=== PATIENT | female | born 1990 | race African-American/Black ===

== ENCOUNTER 2018-03-24 13:01 | Emergency (ER) | payer SELFPAY ==
--- NOTE | 2018-03-24 13:36 | ER Document Report ---
ED Medical Screen (RME) - General Chief Complaint: Neck Injury Stated Complaint: FALL/NECK PAIN Time Seen by Provider: 03/24/18 13:22 TRAVEL OUTSIDE OF THE [place] IN LAST 30 DAYS: No - HPI Notes: 03/24/18 13:34 Patient fell through a deck approximately 2-3 days ago went to an urgent care had a C-spine film performed showing concern for possible retropharyngeal hematoma sent to the ER for further evaluation denies any difficulty swallowing breathing. Resting healthy upon my evaluation. - Related Data Allergies/Adverse Reactions: tramadol Allergy (Intermediate, Verified 03/24/18 13:30) Hives acetaminophen [From Vicodin] Allergy (Verified 03/24/18 13:29) hydrocodone bitartrate [From Vicodin] Allergy (Verified 03/24/18 13:29) loratadine [From Claritin] Allergy (Verified 03/24/18 13:29) pet dander Allergy (Uncoded 03/24/18 13:29) pollen Allergy (Uncoded 03/24/18 13:29) Past Medical History - Social History Chew tobacco use (# tins/day): No Frequency of alcohol use: None Drug Abuse: None Renal/ Medical History: Denies: Hx Peritoneal Dialysis Past Surgical History: Reports: Hx Tonsillectomy - +adenoids - Immunizations Hx Diphtheria, Pertussis, Tetanus Vaccination: No Review of Systems - Review of Systems Constitutional: Other - Neck pain Physical Exam - Vital signs Vitals: Temp Pulse Resp BP Pulse Ox 98.6 F 73 20 147/99 H 99 03/24/18 13:11 03/24/18 13:11 03/24/18 13:11 03/24/18 13:11 03/24/18 13:11 - HEENT Notes: Posterior pharynx shows no signs of swelling. Patient's no drooling tolerating oral secretions no midline tenderness Course - Vital Signs Vital signs: Temp Pulse Resp BP Pulse Ox 98.6 F 73 20 147/99 H 99 03/24/18 13:11 03/24/18 13:11 03/24/18 13:11 03/24/18 13:11 03/24/18 13:11
[2018-03-24 14:07] LABS: ABSOLUTE BASOPHILS # (AUTO) 0.1 10^3/uL (0.0-0.2); ABSOLUTE EOSINOPHILS # (AUTO) 0.3 10^3/uL (0.0-0.6); ABSOLUTE LYMPHOCYTES (AUTO) 4.6 10^3/uL (0.5-4.7); ABSOLUTE MONOCYTES (AUTO) 1.3 10^3/uL (0.1-1.4); ABSOLUTE NEUT (AUTO) 7.9 10^3/uL (1.7-8.2); BASOPHILS % (AUTO) 0.7 % (0-2); EOSINOPHILS % (AUTO) 2.1 % (0-6); HEMOGLOBIN 12.3 g/dL (12.0-15.5); LYMPHOCYTES % (AUTO) 32.3 % (13-45); MEAN CORPUSCULAR HGB CONC 34.2 g/dL (32.0-36.0); MEAN CORPUSCULAR VOLUME 85 fl (80-97); MONOCYTES % (AUTO) 9.4 % (3-13); PLATELET COUNT 296 10^3/uL (150-450); RED BLOOD COUNT 4.24 10^6/uL (3.72-5.28); SEGMENTED NEUTROPHILS % (AUTO) 55.5 % (42-78); TOTAL CELLS COUNTED % (AUTO) 100 %; WHITE BLOOD COUNT 14.2 10^3/uL (4.0-10.5)
[2018-03-24 14:32] LABS: ANION GAP 11 (5-19); BLOOD UREA NITROGEN 8 mg/dL (7-20); CALCIUM 9.4 mg/dL (8.4-10.2); CARBON DIOXIDE 28 mmol/L (22-30); CHLORIDE 102 mmol/L (98-107); GLUCOSE 87 mg/dL (75-110); POTASSIUM 4.4 mmol/L (3.6-5.0); SODIUM 141.1 mmol/L (137-145)
--- NOTE | 2018-03-24 15:00 | RADIOLOGY REPORT (SQ) ---
EXAM DESCRIPTION: CT SOFT TISSUE NECK WITH COMPLETED DATE/TIME: 03/24/2018 2:30 pm REASON FOR STUDY: fall out patient cspine concern for retrophar hemo COMPARISON: None. TECHNIQUE: Post IV contrasted scanning from skull base through lung apices with review of bone, soft tissue and lung windows. Reconstructed coronal and sagittal MPR images reviewed. All images stored on PACS. All CT scanners at this facility use dose modulation, iterative reconstruction, and/or weight based d osing when appropriate to reduce radiation dose to as low as reasonably achievable (ALARA). [facility]: Dose Right [facility]: CareDose [facility]: Dose Right [facility]: Teradose 4D [facility]: [employer] CONTRAST TYPE AND DOSE: contrast/concentration: Isovue 350.00 mg/ml; Total Contrast Delivered: 75.0 ml; Total Saline Delivered: 55.0 ml RENAL FUNCTION: None required. The patient is less than 50 years old. RADIATION DOSE: CT Rad equipment meets quality standard of care and radiation dose reduction techniq ues were employed. CTDIvol: 15.2 mGy. DLP: 439 mGy-cm. . LIMITATIONS: None. FINDINGS: SKULL BASE: Intact. MAJOR SALIVARY GLANDS: No solid or cystic masses. No inflammatory changes. LYMPHADENOPATHY: Scattered prominent lymph nodes are present bilaterally, the largest measuring on th e order of 19 x 14 mm anterior to the right carotid bulb and 24 x 11 mm lateral to the left internal carotid artery. MUCOSAL MASSES OR ASYMMETRY: A 3.9 x 1.5 x 4.6 cm collection demonstrating heterogeneous intermediate attenuation is seen within the retropharyngeal space at the level of the C2 through C3 vertebral bod ies. LARYNX/CORDS: No abnormal findings. VASCULAR STRUCTURES: The major vessels are patent. LUNG APICES: Patchy opacity within the left upper lobe is of uncertain etiology or significance. BONES: Intact. THYROID: Normal size. No masses. PARANASAL SINUSES: Clear. OTHER: No other significant finding. IMPRESSION: 3.9 x 1.5 x 4.6 cm retropharyngeal collection demonstrating intermediate Hounsfield unit s, possibly on the basis of retropharyngeal hemorrhage; mass is not excluded. Bilateral cervical lym phadenopathy. Partially visualized patchy opacity within the left upper lobe. TECHNICAL DOCUMENTATION: JOB ID: [id number] Quality ID # 436: Final reports with documentation of one or more dose reduction techniques (e.g., Au tomated exposure control, adjustment of the mA and/or kV according to patient size, use of iterative reconstruction technique) 2010 [employer]- All Rights Reserved Reading location - IP/workstation name: [email or web address]
[2018-03-24] MEDS ORDERED: FENTANYL CITRATE INJ/PF 100 MCG/2 ML AMPUL IV ONE (15:36)
--- NOTE | 2018-03-24 15:38 | ER Document Report ---
ED General - General Chief Complaint: Neck Injury Stated Complaint: FALL/NECK PAIN Time Seen by Provider: 03/24/18 13:22 Mode of Arrival: Ambulatory Information source: Patient, Parent TRAVEL OUTSIDE OF THE [place] IN LAST 30 DAYS: No - HPI Patient complains to provider of: neck pain Onset: Other - This 28-year-old female presents for evaluation of possible throat pharyngeal hematoma. She is an otherwise healthy 28-year-old who had a fall a few days prior to evaluation today, because of the pain she was having she presented to an outside provider at which time she underwent x-rays of her neck which demonstrated a concern for swelling in the neck. She was told to come to the emergency room and seek evaluation by a neurosurgeon, she denies any fevers or chills, does note some fullness in the front of the neck, does endorse some pain or swelling in the back of the neck. She is never had anything like this in the past, she has taken ibuprofen with only minimal improvement in her symptoms over the last couple of days. - Related Data Allergies/Adverse Reactions: tramadol Allergy (Intermediate, Verified 03/24/18 13:30) Hives acetaminophen [From Vicodin] Allergy (Verified 03/24/18 13:29) hydrocodone bitartrate [From Vicodin] Allergy (Verified 03/24/18 13:29) loratadine [From Claritin] Allergy (Verified 03/24/18 13:29) pet dander Allergy (Uncoded 03/24/18 13:29) pollen Allergy (Uncoded 03/24/18 13:29) Past Medical History - General Information source: Patient, Parent - Social History Smoking Status: Never Smoker Chew tobacco use (# tins/day): No Frequency of alcohol use: None Drug Abuse: None Family History: Reviewed & Not Pertinent Patient has suicidal ideation: No Patient has homicidal ideation: No Renal/ Medical History: Denies: Hx Peritoneal Dialysis Past Surgical History: Reports: Hx Tonsillectomy - +adenoids - Immunizations Hx Diphtheria, Pertussis, Tetanus Vaccination: No Review of Systems - Review of Systems -: Yes All other systems reviewed and negative Physical Exam - Vital signs Vitals: Temp Pulse Resp BP Pulse Ox 98.6 F 73 20 147/99 H 99 03/24/18 13:11 03/24/18 13:11 03/24/18 13:11 03/24/18 13:11 03/24/18 13:11 - General General appearance: Alert, Anxious In distress: None - HEENT Head: Normocephalic Eyes: Normal Conjunctiva: Normal Cornea: Normal Eyelashes: Normal Pupils: PERRL Pharynx: Other - The posterior pharynx is nearly obscured, currently grade 4 malampati Neck: Other - Tenderness in the anterior neck along the trachea as well as the sternocleidomastoid Course - Re-evaluation Re-evalutation: This 28-year-old female presents 5 days after having had a fall through a deck, she subsequently had back pain as well as a sore throat and neck pain. She was seen by a primary physician today in follow-up because her back events or persistently painful at which time she had x-rays taken, the x-ray showed swelling in the neck which was concerning for some bleeding as such she was referred to the emergency room to proceed for further evaluation. Through triage she had a CT scan of the neck done with contrast, CT scan of the neck demonstrated a likely as a retropharyngeal hematoma 4 x 4 x 2 cm. Because of the concern for impending airway impingement and obstruction emergently contacted higher level of care. The patient remained comfortable on room air, she was not stridulous. Believe this patient will require surgical care. 03/24/18 15:42 Contacted [facility] 335 PM Spoke to on-call trauma surgeon Dr. Cardenas, Dr. Cardenas defers to ENT at this time, will speak to ENT at [facility] Spoke specifically to Dr. lockhart of ENT at [facility], he states that this patient likely has a life-threatening injury with vascular involvement in the retropharyngeal space. He recommended immediate transport to [facility] for vascular surgery, neurosurgery and trauma surgery consultation and evaluation. Reassessed the patient who continues to be comfortable on room air. Updated the mother and the patient as to the current plan, patient has been accepted at [facility], because of weather flight was deferred after 1 hours of time. Patient was administered 1 L normal saline, placed on satellite project site monitor, subsequently was transported by advanced life support crew [facility] for definitive management. At the time of transport she was hemodynamically stable and comfortable on room air. 03/24/18 18:10 - Vital Signs Vital signs: Temp Pulse Resp BP Pulse Ox 98.6 F 73 20 147/99 H 99 03/24/18 13:11 03/24/18 13:11 03/24/18 13:11 03/24/18 13:11 03/24/18 13:11 - Laboratory Result Diagrams: 03/24/18 13:45 03/24/18 13:45 Laboratory results interpreted by me: 03/24/18 13:45 WBC 14.2 H Discharge - Discharge Clinical Impression: Oropharyngeal bleeding, Throat swelling, Swelling of throat Condition: Stable Disposition: [facility]
[2018-03-24] MEDS ORDERED: NORMAL SALINE 1000 ML 1,000 ML IV ONE ×2 (15:54→18:34)
[2018-03-24 19:24] VITALS: BP 139/77
== END 2018-03-24 20:00 | disposition short-term general hospital (02) ==
LOC: ER 13:01
DX: R04.1 Hemorrhage from throat (principal); R22.1 Localized swelling, mass and lump, neck; Z88.6 Allergy status to analgesic agent
CPT/HCPCS: 99285; 96361; 96374; 36415; 85025; 80048; 70491; J3010; J7030

== ENCOUNTER 2018-12-17 17:22 | Emergency (ER) | payer SELFPAY ==
[2018-12-17 20:20] VITALS: BP 148/97
--- NOTE | 2018-12-17 20:20 | ER Document Report ---
ED Neck/Back Problem - General Chief Complaint: Neck Swelling Stated Complaint: NECK AND BACK PAIN, SWELLING Time Seen by Provider: 12/17/18 20:09 Mode of Arrival: Ambulatory Information source: Patient Notes: 28-year-old female presents to ED for complaint of neck swelling for the last 2 days. She states it is irritated when she tries to talk or swallow. She states she has had this pain off and on for a year and has been seen by [facility] and Dr. Aguiar multiple times. She states that the swelling has in the past made her have difficulty breathing and today her pain is excruciating. She states she is getting placed on pain management. There is no swelling to the throat at this time she has had her tonsils removed. Patient is alert oriented respirations regular and unlabored speaking in full sentences in no acute distress at this time. We will get a CBC mono test soft tissue neck and a urine. She does have some type of white powder in her nose she states is from an allergy medicine. TRAVEL OUTSIDE OF THE [place] IN LAST 30 DAYS: No - HPI Onset: Other - Off and on for the past year this time for the last 2 days Onset: Chronic Timing: Waxing and waning Quality of pain: Sharp, Throbbing Severity: Severe Pain Level: 5 Context: Turning Recent injury: No Associated symptoms: Other - Swelling to the soft tissue neck and sore throat Exacerbated by: Movement of neck Relieved by: Nothing Similar symptoms previously: Yes Recently seen / treated by doctor: No - Related Data Allergies/Adverse Reactions: tramadol Allergy (Intermediate, Verified 12/17/18 17:24) Hives hydrocodone bitartrate [From Vicodin] Allergy (Verified 12/17/18 17:24) loratadine [From Claritin] Allergy (Verified 12/17/18 17:24) pet dander Allergy (Uncoded 12/17/18 17:24) pollen Allergy (Uncoded 12/17/18 17:24) Past Medical History - General Information source: Patient - Social History Smoking Status: Never Smoker Frequency of alcohol use: None Drug Abuse: None Lives with: Family Family History: Reviewed & Not Pertinent - Past Medical History Cardiac Medical History: Reports: None Renal/ Medical History: Denies: Hx Peritoneal Dialysis Past Surgical History: Reports: Hx Tonsillectomy - +adenoids - Immunizations Hx Diphtheria, Pertussis, Tetanus Vaccination: No Review of Systems - Review of Systems Constitutional: No symptoms reported EENT: Throat pain, Other - Neck swelling off and on for the last year this time is been for 2 days Cardiovascular: No symptoms reported Respiratory: No symptoms reported Gastrointestinal: No symptoms reported Genitourinary: No symptoms reported Female Genitourinary: No symptoms reported Musculoskeletal: No symptoms reported Skin: No symptoms reported Hematologic/Lymphatic: No symptoms reported Neurological/Psychological: No symptoms reported -: Yes All other systems reviewed and negative Physical Exam - Vital signs Vitals: Temp Pulse Resp BP Pulse Ox 98.2 F 91 16 148/97 H 99 12/17/18 17:44 12/17/18 17:44 12/17/18 17:44 12/17/18 17:44 12/17/18 17:44 Interpretation: Normal - General General appearance: Appears well, Alert - HEENT Head: Normocephalic, Atraumatic Eyes: Normal Pupils: PERRL Ears: Normal External canal: Normal Tympanic membrane: Normal Sinus: Normal Nasal: Swelling, Other - White powdery substance in her nose Mouth/Lips: Normal Mucous membranes: Normal Pharynx: Post nasal drainage Neck: Supple, Other - Patient states she has swelling to the neck the neck d is soft and large equal bilateral - Respiratory Respiratory status: No respiratory distress Chest status: Nontender Breath sounds: Normal Chest palpation: Normal - Cardiovascular Rhythm: Regular Heart sounds: Normal auscultation Murmur: No - Abdominal Inspection: Normal Distension: No distension Bowel sounds: Normal Tenderness: Nontender Organomegaly: No organomegaly - Back Back: Normal, Nontender - Extremities General upper extremity: Normal inspection, Nontender, Normal color, Normal ROM, Normal temperature General lower extremity: Normal inspection, Nontender, Normal color, Normal ROM, Normal temperature, Normal weight bearing. No: Deborah's sign - Neurological Neuro grossly intact: Yes Cognition: Normal Orientation: AAOx4 Mattie Coma Scale Eye Opening: Spontaneous [place] Coma Scale Verbal: Oriented Mattie Coma Scale Motor: Obeys Commands Mattie Coma Scale Total: 15 Speech: Normal Motor strength normal: LUE, RUE, LLE, RLE Sensory: Normal - Psychological Associated symptoms: Normal affect, Normal mood - Skin Skin Temperature: Warm Skin Moisture: Dry Skin Color: Normal Course - Re-evaluation Re-evalutation: 12/17/18 21:31 Discussed with patient the fact that we would need to do blood work strep test urine test and x-ray to find out the cause of her "swelling to her neck". The neck is not firm to palpation the neck is equal bilaterally. Patient has no compromise to her airway that I can see. There are no definite swollen lymph nodes noted. She states the worst pain is in the back of her neck and it is been going on off and on for a year. Patient stated she was going to go to the [facility] to plug in her phone. X-ray tech was here to take her to x-ray for the soft tissue neck. And the nurse was prepared to draw her blood and she stated she needed to go to the [facility] to plug in her phone first. Patient did not come back from the [facility]. We have gone and looked in the [facility] we have called her name multiple times. She was not in x-ray. Patient had already said that she did not want blood work or any labs and the x-ray was not going to show anything that she needed an MRI. I had discussed with her that there we do not need to do MRIs of the neck for chronic problem that has no acute problems at this time. Patient did elope. - Vital Signs Vital signs: Temp Pulse Resp BP Pulse Ox 98.2 F 91 16 148/97 H 99 12/17/18 17:44 12/17/18 17:44 12/17/18 17:44 12/17/18 17:44 12/17/18 17:44 Discharge - Discharge Clinical Impression: Normal exam Disposition: ELOPED
== END 2018-12-17 21:49 | disposition left against medical advice (07) ==
LOC: ER 17:22
DX: Z71.1 Person with feared health complaint in whom no diagnosis is made (principal); Z88.6 Allergy status to analgesic agent
CPT/HCPCS: 99281; L0120

== ENCOUNTER 2020-01-26 23:39 | Emergency (ER) | payer SELFPAY ==
[2020-01-27] MEDS ORDERED: MORPHINE SULFATE 10 MG/ML INJ IV STA (02:46)
[2020-01-27] MEDS ORDERED: NORMAL SALINE 1000 ML 1,000 ML IV ONE (02:47)
[2020-01-27] MEDS ORDERED: METOCLOPRAMIDE HCL INJ/PF 10 MG/2 ML SDV IV ONE (02:47)
[2020-01-27] MEDS ORDERED: MORPHINE SULFATE 10 MG/ML INJ IV ONE (02:48)
[2020-01-27] MEDS ORDERED: HYDRALAZINE HCL INJ/PF 20 MG/1 ML SDV IV ONE (02:52)
--- NOTE | 2020-01-27 03:31 | RADIOLOGY REPORT (SQ) ---
EXAM DESCRIPTION: CT HEAD WITHOUT IV CONTRAST COMPLETED DATE/TME: 01/27/2020 02:50 CLINICAL HISTORY: 29 years, Female, headache, high blood pressure COMPARISON: None. TECHNIQUE: 189 Images stored on PACS. All CT scanners at this facility use dose modulation, iterative reconstruction, and/or weight based dosing when appropriate to reduce radiation dose to as low as reasonably achievable (ALARA). [facility]: Dose Right [facility]: CareDose [facility]: Dose Right [facility]: Teradose 4D [facility]: [employer] LIMITATIONS: None. FINDINGS: The globes are intact. Paranasal sinuses and mastoid air cells are well aerated. No displaced or depressed skull fracture. No intra or extra-axial hemorrhage. CT is limited for evaluation of acute infarct. No CT evidence for large or territorial acute infarct. No mass. No midline shift IMPRESSION: Negative exam TECHNICAL DOCUMENTATION: Quality ID # 436: Final reports with documentation of one or more dose reduction techniques (e.g., Automated exposure control, adjustment of the mA and/or kV according to patient size, use of iterative reconstruction technique) copyright 2011 [employer]- All Rights Reserved
[2020-01-27] MEDS ORDERED: LABETALOL HCL INJ 20 MG/4 ML DISP.SYRIN IV ONE ×2 (03:40→04:31)
[2020-01-27 03:42] LABS: ABSOLUTE BASOPHILS # (AUTO) 0.1 10^3/uL (0.0-0.2); ABSOLUTE LYMPHOCYTES (AUTO) 3.3 10^3/uL (0.5-4.7); ABSOLUTE MONOCYTES (AUTO) 0.6 10^3/uL (0.1-1.4); ABSOLUTE NEUT (AUTO) 10.2 10^3/uL (1.7-8.2); BASOPHILS % (AUTO) 0.5 % (0-2); EOSINOPHILS % (AUTO) 0.3 % (0-6); HEMATOCRIT 41.4 % (36.0-47.0); HEMOGLOBIN 13.8 g/dL (12.0-15.5); LYMPHOCYTES % (AUTO) 23.2 % (13-45); MEAN CORPUSCULAR HEMOGLOBIN 28.3 pg (27.0-33.4); MEAN CORPUSCULAR HGB CONC 33.4 g/dL (32.0-36.0); MEAN CORPUSCULAR VOLUME 85 fl (80-97); MONOCYTES % (AUTO) 4.5 % (3-13); PLATELET COUNT 374 10^3/uL (150-450); RED BLOOD COUNT 4.89 10^6/uL (3.72-5.28); RED CELL DISTRIBUTION WIDTH 12.6 % (11.5-14.0); SEGMENTED NEUTROPHILS % (AUTO) 71.5 % (42-78); TOTAL CELLS COUNTED % (AUTO) 100 %; WHITE BLOOD COUNT 14.2 10^3/uL (4.0-10.5)
--- NOTE | 2020-01-27 03:53 | ER Document Report ---
Entered by ROBERTO MEDINA SCRIBE 01/27/20 0240 Acting as scribe for:NEVAEH COMER IV, MD ED Headache - General Chief Complaint: Headache, Worst Ever Stated Complaint: HEADACHE,CONGESTION Time Seen by Provider: 01/27/20 02:29 Primary Care Provider: SANDEEP WAGNER PA-C [Primary Care Provider] - Follow up as needed Mode of Arrival: Medic Information source: Patient Notes: This 29 year old female patient with a history of migraines brought in by EMS presents to the ED today with complaints of a right temporal headache that started x4 days ago. Denies head trauma, nausea/vomiting, blurred vision, or dizziness. Denies use of tobacco, ETOH, or recreational drugs. TRAVEL OUTSIDE OF THE [place] IN LAST 30 DAYS: No - Related Data Allergies/Adverse Reactions: tramadol Allergy (Intermediate, Verified 12/17/18 17:24) Hives hydrocodone bitartrate [From Vicodin] Allergy (Verified 12/17/18 17:24) loratadine [From Claritin] Allergy (Verified 12/17/18 17:24) pet dander Allergy (Uncoded 12/17/18 17:24) pollen Allergy (Uncoded 12/17/18 17:24) Past Medical History - General Information source: Patient - Social History Smoking Status: Never Smoker Cigarette use (# per day): No Chew tobacco use (# tins/day): No Smoking Education Provided: No Frequency of alcohol use: None Drug Abuse: None Family History: Reviewed & Not Pertinent Patient has suicidal ideation: No Patient has homicidal ideation: No Neurological Medical History: Reports: Hx Migraine Past Surgical History: Reports: Hx Adenoidectomy, Hx Tonsillectomy - Immunizations Hx Diphtheria, Pertussis, Tetanus Vaccination: No Review of Systems - Review of Systems Constitutional: No symptoms reported EENT: See HPI. denies: Blurred vision Cardiovascular: See HPI. denies: Dizziness Respiratory: No symptoms reported Gastrointestinal: See HPI. denies: Nausea, Vomiting Genitourinary: No symptoms reported Female Genitourinary: No symptoms reported Musculoskeletal: No symptoms reported Skin: No symptoms reported Hematologic/Lymphatic: No symptoms reported Neurological/Psychological: See HPI, Headaches -: Yes All other systems reviewed and negative Physical Exam - Vital signs Vitals: Temp Pulse Resp BP Pulse Ox 98.7 F 90 16 179/115 H 95 01/27/20 01:43 01/27/20 01:43 01/27/20 01:43 01/27/20 01:43 01/27/20 01:43 Interpretation: Hypertensive - General General appearance: Alert In distress: None - HEENT Head: Normocephalic, Atraumatic Eyes: Normal Pupils: PERRL - Respiratory Respiratory status: No respiratory distress Chest status: Nontender Breath sounds: Normal Chest palpation: Normal - Cardiovascular Rhythm: Regular Heart sounds: Normal auscultation Murmur: No Friction rub: No Gallop: None auscultated - Abdominal Inspection: Normal Distension: No distension Bowel sounds: Normal Tenderness: Nontender - Abdomen soft Organomegaly: No organomegaly - Back Back: Normal, Nontender - Extremities General upper extremity: Normal inspection General lower extremity: Normal inspection - Neurological Neuro grossly intact: Yes Orientation: AAOx4, Disoriented to events Mattie Coma Scale Eye Opening: Spontaneous Mattie Coma Scale Verbal: Oriented [place] Coma Scale Motor: Obeys Commands Mattie Coma Scale Total: 15 - Psychological Associated symptoms: Normal affect, Normal mood - Skin Skin Temperature: Warm Skin Moisture: Dry Skin Color: Normal Course - Re-evaluation Re-evalutation: 01/27/20 05:52 Patient states she is feeling better. Results of ED MSE discussed with patient. All questions were answered prior to discharge. Emergency signs and symptoms, reasons to return to the emergency department discussed with patient. - Vital Signs Vital signs: Temp Pulse Resp BP Pulse Ox 98.7 F 90 16 142/71 H 99 01/27/20 01:43 01/27/20 01:43 01/27/20 05:01 01/27/20 05:00 01/27/20 05:01 - Laboratory Result Diagrams: 01/27/20 03:08 01/27/20 03:08 Laboratory results interpreted by me: 01/27/20 01/27/20 03:08 03:08 WBC 14.2 H Absolute Neuts (auto) 10.2 H BUN 5 L Glucose 124 H - Diagnostic Test Radiology reviewed: Reports reviewed Discharge - Discharge Clinical Impression: Headache Qualifiers: Headache type: unspecified Headache chronicity pattern: acute headache Intractability: not intractable Qualified Code(s): R51 - Headache High blood pressure Qualifiers: Hypertension type: unspecified Qualified Code(s): I10 - Essential (primary) hypertension Condition: Stable Disposition: HOME, SELF-CARE Instructions: Headache ([facility]) Additional Instructions: Return to the Emergency Department without delay if any worse. HOME CARE INSTRUCTIONS & INFORMATION: Thank you for choosing us for your medical needs. We hope you're satisfied with the care you received. After you leave, you must properly care for your problem and, at the same time, observe its progress. Any condition can change. Some illnesses can change rapidly over hours or days. If your condition worsens, return to the Emergency Department or see your physician promptly. ABOUT YOUR X-RAYS AND EKG'S: If you had an EKG or X-rays taken, they have been read by the Emergency Physician. The X-rays and EKG's will also be read by a Radiologist or Geomagnetist within 24 hours. If discrepancies are noted, you will be notified by telephone. Please be certain the ED has a correct telephone number & address where you can be reached. Also, realize that some fractures or abnormalities do not show up on initial X-rays. If your symptoms continue, see your physician. ABOUT YOUR LABORATORY TEST: If you had laboratory tests, the results have been reviewed by the Emergency Physician. Some test results (for example cultures) may not be available for several days. You will be contacted if any test result shows you need additional treatment. Please be certain the ED has a correct telephone number and address where you can be reached. ABOUT YOUR MEDICATIONS: You will receive instructions on how to take your medicine on the prescription label you receive. Additional information may be provided by the Pharmacy. If you have questions afterwards, call the ED for clarification or further instructions. Some prescribed medications may cause drowsiness. Do not perform tasks such as driving a car or operating machinery without consulting your Pharmacist. If you feel you need a refill of pain medication, your condition will need re-evaluation. Please do not call for a refill of any medication. ABOUT YOUR SIGNATURE: Signature of this document acknowledges to followin. Understanding that you received emergency treatment and that you may be released before al medical problems are known or treated. Please be certain the ED has a correct phone number & address where you can be reached. 2. Acknowledgement that you will arrange for follow-up care as recommended. 3. Authorization for the Emergency Physician to provide information to your follow-up Physician in order to maximize your care. AT ANY TIME, IF YOUR SYMPTOMS CHANGE SIGNIFICANTLY OR WORSEN OR YOU DEVELOP NEW SYMPTOMS, RETURN TO THE EMERGENCY DEPARTMENT IMMEDIATELY FOR RE-EVALUATION. OUR GOAL IS TO PROVIDE EXCELLENT MEDICAL CARE! WE HOPE THAT WE HAVE MET YOUR EXPECTATIONS DURING YOUR EMERGENCY DEPARTMENT VISIT AND THAT YOU FEEL YOU HAVE RECEIVED EXCELLENT CARE! Headache The physician does not feel that the headache you are experiencing has a serious underlying cause. Most headaches are due to emotional stress, with resultant muscle tension (tension headache). Occasionally, headaches are secondary to changes in the blood vessels of the scalp (vascular headache and migraine headache). Sometimes, a headache is the first symptom of another developing illness, such as a viral infection. You have no evidence of stroke, bleeding, meningitis, or other serious cause of your headache. The treatment of headaches varies with the severity and cause of the pain. Not all headaches need pain shots. In fact, there is evidence that using narcotics for headaches may make them worse in the long run. The physician will determine the therapy that's in your best interest. If you develop a fever, if the headache is different from any you've previously experienced, or if the headache progressively worsens, then call your physician at once or go to the emergency room. High Blood Pressure When your blood pressure was taken today it was elevated. Today's reading was . Pre-hypertension/Hypertension: The patient has been informed that they may have pre-hypertension or Hypertension based on a blood pressure reading in the emergency department. I recommend that the patient call the primary care provider listed on their discharge instructions or a physician of their choice this week to arrange follow up for further evaluation of possible pre- hypertension or Hypertension. Sometimes, stress or illness causes a temporary elevation of your blood pressure. We suggest that you get your blood pressure measured three more times during the next few days to see if this is more than a temporary abnormality. If your blood pressure is greater than 150/90 on each occasion, you must have treatment. Some simple things you can do to help are: If you have blood pressure medicine but aren't using it regularly, start taking it again. Get some aerobic exercise for at least 20 minutes on a daily basis. (See your doctor before beginning a new exercise program.) Eat a low-fat diet. Lose excess weight. Avoid salty foods and avoid adding salt to any of the foods you eat. Avoid diet pills, decongestants, "energizing" herbs, and other medicines that elevate blood pressure. If left untreated, hypertension greatly enhances your risk for developing heart disease and strokes. Please don't ignore this problem. Prescriptions: Metoclopramide HCl [Reglan 10 mg Tablet] 10 mg PO Q6HP PRN #12 tablet PRN Reason: headache Ketorolac Tromethamine [Toradol 10 mg Tablet] 10 mg PO Q6HP PRN #12 tablet PRN Reason: headache Hydralazine HCl [Apresoline 10 mg Tablet] 10 mg PO QID #40 tab Referrals: SANDEEP WAGNER PA-C [Primary Care Provider] - Follow up as needed I personally performed the services described in the documentation, reviewed and edited the documentation which was dictated to the scribe in my presence, and it accurately records my words and actions.
[2020-01-27 04:14] LABS: ALBUMIN 4.6 g/dL (3.5-5.0); ALKALINE PHOSPHATASE 74 U/L (38-126); ANION GAP 11 (5-19); ASPARTATE AMINO TRANSFERASE 24 U/L (14-36); BILIRUBIN,DIRECT 0.3 mg/dL (0.0-0.4); BILIRUBIN,TOTAL 0.6 mg/dL (0.2-1.3); BLOOD UREA NITROGEN 5 mg/dL (7-20); CALCIUM 10.2 mg/dL (8.4-10.2); CARBON DIOXIDE 24 mmol/L (22-30); CHLORIDE 104 mmol/L (98-107); GLUCOSE 124 mg/dL (75-110); POTASSIUM 4.4 mmol/L (3.6-5.0); TOTAL PROTEIN 7.9 g/dL (6.3-8.2)
[2020-01-27] MEDS ORDERED: HYDROMORPHONE HCL INJ/PF 2 MG/ML AMPULE IV ONE (05:20)
[2020-01-27] MEDS ORDERED: KETOROLAC TROMETHAMINE INJ/PF 30 MG/1 ML SDV IV ONE (05:53)
[2020-01-27 06:54] VITALS: BP 161/98
== END 2020-01-27 06:54 | disposition home or self-care (01) ==
LOC: ER 23:39
DX: R51 Headache (principal); R09.81 Nasal congestion; I10 Essential (primary) hypertension; Z88.8 Allergy status to other drugs, medicaments and biological substances
CPT/HCPCS: 96376; 99285; 96361; 96374; 96375; 36415; 85025; 80053; 70450; J0360; J3490; J1885; J2765; J2270; J1170; J7030